=== PATIENT | female | born 1950 | race Caucasian/White ===

== ENCOUNTER 2017-07-01 11:42 | Inpatient (IN) | payer OTHER ==
[~2017-07-01] VITALS: Ht 165.1 cm; Wt 106.7 kg
--- NOTE | ~2017-07-01 | EKG ---
[address] [place] [address] ELECTROCARDIOGRAM REPORT Name: SUE LOCKHART Room #: 364-P ADM IN M.R.#: [id number] Admission: 07/01/17 Attend Phys: Antonella Velazquez Discharge: Date of : 54 Report #: [id number] THIS REPORT FOR: //name// [facility] ED Test Date: 2017-07-01 Test Time: 11:49:10 Pat Name: SUE LOCKHART Department: Room: 364 Gender: F Mount Loader: [id number] : 1950 Requested By: Heather Darling Order Number: [id number] MD: Shiva Hollingsworth Measurements Intervals [place] Rate: 48 P: 33 AL: 159 QRS: -1 QRSD: 94 T: 103 QT: 447 QTc: 400 Interpretive Statements Sinus bradycardia Nonspecific T abnrm, anterolateral leads Minimal ST elevation, inferior leads Compared to ECG 07/09/2013 10:19:34 ST (T wave) deviation now present Sinus rhythm no longer present T-wave abnormality no longer present Possible ischemia no longer present Electronically Signed On 07-01-2017 22:42:43 CDT by Shiva Hollingsworth [email or web address] <ELECTRONICALLY SIGNED> By: Shiva Hollingsworth MD 07/01/17 2242 1149 1149 Shiva Hollingsworth MD /EPI
--- NOTE | ~2017-07-01 | EKG ---
[address] [address] ELECTROCARDIOGRAM REPORT Name: SUE LOCKHART Room #: 211-P ADM IN M.R.#: [id number] Admission: 07/01/17 Attend Phys: Antonella Velazquez Discharge: Date of : 54 Report #: [id number] THIS REPORT FOR: //name// [facility] Test Date: 2017-07-02 Test Time: 06:55:42 Pat Name: SUE LOCKHART Department: Room: 211 Gender: F Otr Flatbed Driver: jimmy : 1950 Requested By: Remi Saldivar Order Number: [id number] MD: Shiva Hollingsworth Measurements Intervals [place] Rate: 60 P: 37 [place]: 152 QRS: -21 QRSD: 98 T: 34 QT: 448 QTc: 448 Interpretive Statements Sinus rhythm Borderline left axis deviation Borderline T abnormalities, anterior leads Compared to ECG 07/01/2017 11:49:10 T-wave abnormality now present Sinus bradycardia no longer present ST (T wave) deviation no longer present Electronically Signed On 07-02-2017 17:37:01 CDT by Shiva Hollingsworth [email or web address] <ELECTRONICALLY SIGNED> By: Shiva Hollingsworth MD 07/02/17 1737 0655 0655 Shiva Hollingsworth MD /EPI
--- NOTE | ~2017-07-01 | CATHLAB ---
[facility] [address] [place] [address] INVASIVE PROCEDURE REPORT Name: CHANTELLESUE Markie Room #: 211-P [facility] IN ..#: [id number] Admission: 07/01/17 Attend Phys: Antonella Fitch Discharge: Date of : 54 Date of Service: 07/02/17 2252 Report #: [id number] THIS REPORT FOR: //name// APPROVED REPORT Patient Details Patient Status: In-Patient Room #: The patient is a 66 year-old female Event Personnel Remi Saldivar Boot Maker, Teresa Copeland, Wang Basurto RN, Latisha Stewart RN RN, Casie Wei Scrub, Rocío Messer CVT Scrub Procedures Performed 07000 Initial Mod Sed Same Phys/QHP Gr5y 016802 89096 Mod Sed Same Phys/QHP Ea 609106 RONALDO Place w/wo Plasty Single LAD 496149 Art Access - R femoral artery* Left Heart Cath w/or w/o Coronaries 3457170 [facility] Aortogram Abdominal Peripheral Angio 307763 Procedure Narrative The patient was brought urgently to the Cardiac Catheterization Laboratory and was prepped and draped in a sterile manner. The Right Groin^ was infiltrated with 1% Lidocaine subcutaneous anesthesia. A PINNACLE 6FR Sheath #[id number] sheath was inserted into the RFA^. Coronary angiography was performed using coronary diagnostic catheters. The right coronary system was accessed and visualized with a JR 4 catheter. The left coronary system was accessed and visualized with a JL 4 catheter. The left ventricle was accessed and visualized with a Pigtail catheter. Left ventricular/Aortic Valve gradient assessed via catheter pullback. Left ventriculogram was performed in 30 degree projection. An aortogram of the descending aorta was performed. The patient tolerated the procedure well and there were no complications associated with the procedure. Intraoperative Conscious Sedation Sedation start time: 09:49 Case end Time: 10:46 Fentanyl 50.0 mcg Versed 1.5 mg Fluoro Time: 12.40 minutes Dose: DAP 70954.00 cGycm2 2013 mGy Contrast Type and Amount: Omnipaque 245 ml Hemodynamics [facility] [address] [place] [address] INVASIVE PROCEDURE REPORT Name: SUE LOCKHART Room #: 211-P [facility] IN ..#: [id number] Admission: 07/01/17 Attend Phys: Antonella Fitch Discharge: Date of : 54 Date of Service: 07/02/17 2252 Report #: [id number] The aortic pressure is 176/85 mmHg with a mean of 122 mmHg. The left ventricular pressure is 172/7 mmHg with a mean of mmHg. The left ventricular end diastolic pressure is 30 mmHg. PCI Technique Lesion Anticoagulation was achieved with Heparin. Percutaneous coronary intervention was performed on the proximal left anterior descending artery segment. A LAUNCHER 6FR JL4 #536794 Guide Catheter was used to engage the ostium. A Luge Wire .014 x 182CM #[id number] Interventional Guidewire was used to cross the lesion. BALLOON DILATION A Balloon catheter Sprinter OTW 2.5 x 15 #[id number] was inserted and inflated up to 14.00atm for 30seconds. Additional Inflation: 16.00atm for 26seconds. Additional Inflation: 12.00atm for 32seconds. STENT DEPLOYMENT A drug-eluting stent RESOLUTE OTW 2.5 X 14 #[id number] was inserted and inflated up to 15.00atm for 34seconds. STENT DEPLOYMENT A drug-eluting stent RESOLUTE OTW 3.0 X 12 #[id number] was inserted and inflated up to 16.00atm for 25seconds. Conclusion #1 normal left ventricular size and mild anterior wall leg EF 50% range #2 abdominal aorta is intact no aneurysm single bilateral renal arteries are patent. #3 left main free of disease giving rise to LAD and circumflex dominant circumflex #4 moderately diseased LAD which wraps the apex is a high-grade proximal lesion a septal curator zoological museum 90% a 4050% mid vessel in the mid distal not long 90% lesion at the apex subtotally occluded. #5 Circumflex OM is well preserved large dominant vessel no significant occlusive disease #6 small nondominant right coronary artery #7 successful PTCA stent of the proximal high-grade lesion in the mid-distal long lesion with a 30 by 12 proximally resolute drug-eluting stent postdilated 3.3 mm Mid-distal long subtotal lesion 0% with a 2.5 x 14 drug-eluting resolute stent to 2.7 mm MARCIAL grade 3 flow no dissection or thrombus formation Recommendations and plan continue aggressive risk factor modification [facility] [address] [place] [address] INVASIVE PROCEDURE REPORT Name: SUE LOCKHART Room #: 211-P [facility] IN M.R.#: [id number] Admission: 07/01/17 Attend Phys: Antonella Jagdish Fitch Discharge: Date of : 54 Date of Service: 07/02/172251 Report #: [id number] dual antiplatelet therapy. Technically difficult challenging study due to body habitus multiple guides were attempted final result excellent in the stented segments. There is moderate disease otherwise noted LV function near normal. No lifting for 48 hours no line tub Jacuzzi or Hart for a week. No MRI or dental work for 3 months Transfer to CCU in stable guarded condition I did need to upgrade the sheath due to oozing 7 Telugu this will removed in the holding area in transfer to CCU small hematoma is noted <ELECTRONICALLY SIGNED> By: Remi Saldivar MD, FACC 07/02/172251 51 51 Remi Saldivar MD, FACC /INF
--- NOTE | ~2017-07-01 | EKG ---
[address] [address] ELECTROCARDIOGRAM REPORT Name: SUE LOCKHART Room #: 211- ADM IN M.R.#: [id number] Admission: 07/01/17 Attend Phys: Antonella Velazquez Discharge: Date of : 54 Report #: [id number] THIS REPORT FOR: //name// [facility] Test Date: 2017-07-02 Test Time: 12:50:18 Pat Name: SUE LOCKHART Department: Room: 211 P Gender: F Loom Overhauler: jimmy : 1950 Requested By: Remi Saldivar Order Number: [id number] MD: Shiva Hollingsworth Measurements Intervals [place] Rate: 64 P: 35 NE: 151 QRS: -27 QRSD: 98 T: -23 QT: 471 QTc: 486 Interpretive Statements Sinus rhythm Probable left ventricular hypertrophy Inferior infarct, age indeterminate Compared to ECG 07/01/2017 11:49:10 Myocardial infarct finding now present Sinus bradycardia no longer present ST (T wave) deviation no longer present Electronically Signed On 07-02-2017 17:41:38 CDT by Shiva Hollingsworth [email or web address] <ELECTRONICALLY SIGNED> By: Shiva Hollingsworth MD 07/02/17 1741 1250 1250 Shiva Hollingsworth MD /EPI
--- NOTE | ~2017-07-01 | EKG ---
[address] [address] ELECTROCARDIOGRAM REPORT Name: SUE LOCKHART Room #: 211-P ADM IN M.R.#: [id number] Admission: 07/01/17 Attend Phys: Antonella Velazquez Discharge: Date of : 54 Report #: [id number] THIS REPORT FOR: //name// [facility] Test Date: 2017-07-03 Test Time: 14:42:06 Pat Name: SUE LOCKHART Department: Room: 211 P Gender: F Economics Consultant: Italo AGUIRRE : 1950 Requested By: Antonella Velazquez Order Number: [id number] MD: Shiva Hollingsworth Measurements Intervals [place] Rate: 77 P: 34 NC: 143 QRS: -11 QRSD: 89 T: 104 QT: 400 QTc: 453 Interpretive Statements Sinus rhythm Borderline repolarization abnormality Minimal ST elevation, inferior leads Compared to ECG 07/02/2017 12:50:18 ST (T wave) deviation now present Myocardial infarct finding no longer present Electronically Signed On 07-03-2017 20:29:38 CDT by Shiva Hollingsworth [email or web address] <ELECTRONICALLY SIGNED> By: Shiva Hollingsworth MD 07/03/172028 144 41 Shiva Hollingsworth MD /EPI
[~2017-07-01 11:42] MED LIST: ACETAMINOPHEN-1 EAC1 PO; ASPIRIN325 PO; AVELOX 400 MG400 MG PO; BACTRIM DS TAB1 EACH PO; BENADRYL25 MG PO; CELEXA 20 MG TA20 M1 PO; CELEXA40 MG PO; CIPROFLOXACIN500 M1 PO; DIFLUCAN150 MG PO; FISH OIL 1,0001 EAC5 PO; GLUCOPHAGE500 MG PO; HYDROXYZINE HCL25 M1 PO; INDOCIN50 MG PO; INDOMETHACIN 5050 M1 PO; KLOR-CON 10 ER10 MEQ PO; LANTUS SQ; LANTUS SUBQ; LASIX 40 MG TAB40 MG PO; LEVOTHROID PO; LISINOPRIL40 MG PO; LOPRESSOR 50 MG50 M1 PO; MACROBID 100 M100 M1 PO; NEURONTIN800 MG PO; NEXIUM40 MG PO; NORCO 5-325 TA1 EACH PO; NOVOLOG100 UNIT/1 SUBQ; NYSTATIN15 GM TP; PANTOPRAZOLE SO40 M1 PO; PHENERGAN 25 MG25 M1 PO; PREMARIN VAGI42.5 G1 VAG; PROMETHAZINE D480 M1 PO; PROTONIX40 M2 PO; PYRIDIUM200 MG PO; SYNTHROID175 MCG PO; TOPAMAX 25 MG T25 M1 PO; TOPAMAX100 MG PO; TOPAMAX200 MG PO; ZOFRAN ODT4 MG PO; ZOFRAN4 MG PO; ZPAK PO
[2017-07-01 11:43] VITALS: BP 144/75
[2017-07-01] MEDS ORDERED: LEVEMIR SUBQ (12:02)
[2017-07-01 12:05] LABS: ABSOLUTE NEUTROPHILS 8.3 thou/uL (1.4-8.2); BASOPHILS 0.5 % (0.0-2.0); EOSINOPHILS 0.9 % (0.0-3.0); HEMATOCRIT 38.3 % (37.0-47.0); HEMOGLOBIN 12.1 gm/dL (12.0-15.0); LYMPHOCYTES 13.5 % (24.0-44.0); MANUAL DIFF NO; MCH 23.3 pg (26.0-34.0); MCHC 31.7 g/dL (28.0-37.0); MCV 73.6 fL (80.0-100.0); MONOCYTES 3.9 % (1.0-8.0); PLATELET COUNT 247 thou/uL (150-400); POLYS 81.2 % (36.0-66.0); RBC 5.21 mil/uL (4.20-5.00); RDW 16.7 % (10.5-14.5); WBC 10.3 thou/uL (4.0-11.0)
[2017-07-01 12:17] LABS: ANION GAP 11 mmol/L (7-16); BUN 10 mg/dL (7-18); CALCIUM 9.2 mg/dL (8.5-10.1); CHLORIDE 100 mmol/L (98-107); CO2 22 mmol/L (21-32); CREATININE 0.9 mg/dL (0.6-1.0); GLUCOSE 401 mg/dL (74-106); POTASSIUM 4.3 mmol/L (3.5-5.1); SODIUM 133 mmol/L (136-145)
[2017-07-01 12:26] LABS: TROPONIN-I < 0.04 ng/mL (<0.04-0.07)
[2017-07-01 12:30] LABS: ANISOCYTOSIS 1+; PLATELET ESTIMATE NORMAL
[2017-07-01 12:31] LABS: MICROCYTES 1+
[2017-07-01 13:57] VITALS: BP 177/63
[2017-07-01 15:15] VITALS: BP 179/79
[2017-07-01 16:00] VITALS: BP 180/67
[2017-07-01 17:40] LABS: CHOLESTEROL 170 mg/dL (<200); HDL CHOLESTEROL 25 mg/dL (>40); LDL CHOLESTEROL 111 mg/dL (<100); TC:HDL 6.8 Ratio (Not establshd); TRIGLYCERIDE 174 mg/dL (<150); VLDL 35 mg/dL (<40)
[2017-07-01 17:41] LABS: SERUM ASSESSMENT Clear
[2017-07-01 20:50] VITALS: BP 143/62
[2017-07-02 00:10] VITALS: BP 132/66
[2017-07-02 06:10] VITALS: BP 146/74
[2017-07-02 06:55] LABS: ALBUMIN 3.1 g/dL (3.4-5.0); CALCIUM 8.7 mg/dL (8.5-10.1); CREATININE 0.8 mg/dL (0.6-1.0); PHOSPHORUS 3.8 mg/dL (2.5-4.9); POTASSIUM 4.2 mmol/L (3.5-5.1)
[2017-07-02 08:30] VITALS: BP 148/64
[2017-07-02 13:08] VITALS: BP 133/73
[2017-07-02 18:58] LABS: HEMATOCRIT 37.8 % (37.0-47.0); HEMOGLOBIN 11.6 gm/dL (12.0-15.0)
[2017-07-02 19:14] LABS: APTT 27.1 Seconds (24.5-32.8); INR 1.1; PROTIME 10.8 Seconds (9.3-11.4)
[2017-07-02 19:38] VITALS: BP 110/60
[2017-07-02 23:30] VITALS: BP 107/76
[2017-07-03 02:52] LABS: HEMATOCRIT 32.3 % (37.0-47.0); HEMOGLOBIN 10.1 gm/dL (12.0-15.0); MCH 23.6 pg (26.0-34.0); MCHC 31.3 g/dL (28.0-37.0); MCV 75.5 fL (80.0-100.0); RBC 4.27 mil/uL (4.20-5.00); RDW 16.4 % (10.5-14.5); WBC 18.2 thou/uL (4.0-11.0)
[2017-07-03 02:56] LABS: CALCIUM 8.7 mg/dL (8.5-10.1); CREATININE 1.2 mg/dL (0.6-1.0); POTASSIUM 4.3 mmol/L (3.5-5.1)
[2017-07-03 03:53] VITALS: BP 113/57
[2017-07-03 08:40] VITALS: BP 121/50
[2017-07-03 11:10] VITALS: BP 104/49
[2017-07-03 15:24] VITALS: BP 121/42
[2017-07-03 19:45] VITALS: BP 103/42
[2017-07-04 00:15] VITALS: BP 126/55
[2017-07-04 04:12] VITALS: BP 118/53
[2017-07-04 07:41] VITALS: BP 117/54
[2017-07-04] MEDS ORDERED: CLOPIDOGREL75 MG PO (08:55)
[2017-07-04] MEDS ORDERED: ATORVASTATIN CA40 MG PO (08:55)
[2017-07-04] MEDS ORDERED: METOPROLOL SUCC25 M1 PO (08:55)
[2017-07-04 09:22] VITALS: BP 117/54
== END 2017-07-04 10:39 | disposition home or self-care (01) | DRG 246 ==
LOC: ER 11:42 → 3W 13:49 → EROBS 13:49 → 3W 15:53 → 2N 07-02 12:24 → ENTRNSPT 07-04 10:29 → 2N 07-04 10:39
PROVIDERS: Emergency Medicine; Hospitalist; Internal Medicine Cardiovascular Disease; Nurse Practitioner Gerontology
PROC: B2111ZZ Fluoroscopy of Multiple Coronary Arteries using Low Osmolar Contrast (ICD-10-PCS; principal; 2017-07-02)
PROC: 4A023N7 Measurement of Cardiac Sampling and Pressure, Left Heart, Percutaneous Approach (ICD-10-PCS; principal; 2017-07-02)
PROC: 027034Z Dilation of Coronary Artery, One Artery with Drug-eluting Intraluminal Device, Percutaneous Approach (ICD-10-PCS; principal; 2017-07-02)
PROC: B2151ZZ Fluoroscopy of Left Heart using Low Osmolar Contrast (ICD-10-PCS; principal; 2017-07-02)
DX: I21.4 Non-ST elevation (NSTEMI) myocardial infarction (principal); N17.0 Acute kidney failure with tubular necrosis; G43.909 Migraine, unspecified, not intractable, without status migrainosus; F41.9 Anxiety disorder, unspecified; E03.9 Hypothyroidism, unspecified; E66.9 Obesity, unspecified; E11.65 Type 2 diabetes mellitus with hyperglycemia; I25.10 Atherosclerotic heart disease of native coronary artery without angina pectoris; R00.1 Bradycardia, unspecified; S30.1XXA Contusion of abdominal wall, initial encounter; K31.84 Gastroparesis; E11.43 Type 2 diabetes mellitus with diabetic autonomic (poly)neuropathy; F32.9 Major depressive disorder, single episode, unspecified; Z85.41 Personal history of malignant neoplasm of cervix uteri; Z90.710 Acquired absence of both cervix and uterus; Z86.73 Personal history of transient ischemic attack (TIA), and cerebral infarction without residual deficits; Z90.49 Acquired absence of other specified parts of digestive tract; Z88.6 Allergy status to analgesic agent; Z88.0 Allergy status to penicillin; Z88.2 Allergy status to sulfonamides; Z88.8 Allergy status to other drugs, medicaments and biological substances; Z68.39 Body mass index [BMI] 39.0-39.9, adult; Z79.899 Other long term (current) drug therapy; Z79.82 Long term (current) use of aspirin; I25.2 Old myocardial infarction; Z82.49 Family history of ischemic heart disease and other diseases of the circulatory system; Z91.041 Radiographic dye allergy status
CPT/HCPCS: 10081; 10779

== ENCOUNTER → 2020-03-11 | Outpatient (CLI) | payer OTHER ==
[~2020-03-11] MED LIST changes: +ATORVASTATIN CA40 MG PO; +CLOPIDOGREL75 MG PO; +LEVEMIR SUBQ; +METOPROLOL SUCC25 M1 PO
== END ==
LOC: SJCVCIMAG 02-24 09:55
PROVIDERS: ATTEND Internal Medicine Cardiovascular Disease
DX: I35.8 Other nonrheumatic aortic valve disorders (principal); R94.31 Abnormal electrocardiogram [ECG] [EKG]; I25.10 Atherosclerotic heart disease of native coronary artery without angina pectoris; I10 Essential (primary) hypertension; E78.00 Pure hypercholesterolemia, unspecified; E08.00 Diabetes mellitus due to underlying condition with hyperosmolarity without nonketotic hyperglycemic-hyperosmolar coma (NKHHC); I65.23 Occlusion and stenosis of bilateral carotid arteries; E03.9 Hypothyroidism, unspecified; E66.01 Morbid (severe) obesity due to excess calories; Z79.82 Long term (current) use of aspirin; Z79.899 Other long term (current) drug therapy; Z79.4 Long term (current) use of insulin; Z86.73 Personal history of transient ischemic attack (TIA), and cerebral infarction without residual deficits

== ENCOUNTER → 2020-11-03 | Outpatient (CLI) | payer OTHER | LOC: SJCVC 11:18 | PROVIDERS: ATTEND Internal Medicine Cardiovascular Disease | DX: R94.31 Abnormal electrocardiogram [ECG] [EKG] (principal); I25.10 Atherosclerotic heart disease of native coronary artery without angina pectoris; I11.9 Hypertensive heart disease without heart failure; I65.23 Occlusion and stenosis of bilateral carotid arteries; E78.00 Pure hypercholesterolemia, unspecified; R07.9 Chest pain, unspecified; R06.00 Dyspnea, unspecified; G40.909 Epilepsy, unspecified, not intractable, without status epilepticus; G89.29 Other chronic pain; E11.40 Type 2 diabetes mellitus with diabetic neuropathy, unspecified; E03.9 Hypothyroidism, unspecified; E66.01 Morbid (severe) obesity due to excess calories; Z79.899 Other long term (current) drug therapy; Z79.4 Long term (current) use of insulin; Z86.73 Personal history of transient ischemic attack (TIA), and cerebral infarction without residual deficits; Z88.5 Allergy status to narcotic agent; Z88.0 Allergy status to penicillin; Z88.2 Allergy status to sulfonamides; Z88.8 Allergy status to other drugs, medicaments and biological substances ==

== ENCOUNTER 2020-11-18 18:57 | Emergency (ER) | payer OTHER ==
[~2020-11-18] VITALS: Ht 167.6 cm; Wt 89.8 kg
[2020-11-18] MEDS ORDERED: ANUSOL-HC30 GM TOP (21:40)
[2020-11-18] MEDS ORDERED: RECTASMOOTHE30 GM TOP (21:40)
[2020-11-18] MEDS ORDERED: ANUSOL-HC25 MG RECTAL (21:40)
[2020-11-18] MEDS ORDERED: SENNA-DOCUSATE1 EAC1 PO (21:40)
[2020-11-18 23:00] VITALS: BP 134/43
== END 2020-11-18 22:15 | disposition home or self-care (01) ==
LOC: ER 18:57
DX: K64.4 Residual hemorrhoidal skin tags (principal); B97.7 Papillomavirus as the cause of diseases classified elsewhere; I10 Essential (primary) hypertension; K59.09 Other constipation; G43.909 Migraine, unspecified, not intractable, without status migrainosus; Z90.49 Acquired absence of other specified parts of digestive tract; Z90.710 Acquired absence of both cervix and uterus; Z90.89 Acquired absence of other organs; Z79.01 Long term (current) use of anticoagulants; Z79.899 Other long term (current) drug therapy; Z88.0 Allergy status to penicillin; Z88.1 Allergy status to other antibiotic agents; Z88.2 Allergy status to sulfonamides; Z88.5 Allergy status to narcotic agent; Z88.8 Allergy status to other drugs, medicaments and biological substances; Z79.82 Long term (current) use of aspirin

== ENCOUNTER 2020-11-21 10:35 | Emergency (ER) | payer OTHER ==
[~2020-11-21] VITALS: Ht 167.6 cm; Wt 89.8 kg
[~2020-11-21 10:35] MED LIST changes: +ANUSOL-HC25 MG RECTAL; +ANUSOL-HC30 GM TOP; +RECTASMOOTHE30 GM TOP; +SENNA-DOCUSATE1 EAC1 PO
[2020-11-21 12:49] VITALS: BP 154/79
== END 2020-11-21 12:49 | disposition home or self-care (01) ==
LOC: ER 10:35
DX: K64.4 Residual hemorrhoidal skin tags (principal); K59.00 Constipation, unspecified; G43.909 Migraine, unspecified, not intractable, without status migrainosus; Z90.49 Acquired absence of other specified parts of digestive tract; Z90.710 Acquired absence of both cervix and uterus; Z79.899 Other long term (current) drug therapy; Z79.82 Long term (current) use of aspirin; Z88.0 Allergy status to penicillin; Z88.2 Allergy status to sulfonamides; Z88.5 Allergy status to narcotic agent; Z88.1 Allergy status to other antibiotic agents; Z91.041 Radiographic dye allergy status; Z88.8 Allergy status to other drugs, medicaments and biological substances

== ENCOUNTER → 2021-01-04 | Outpatient (CLI) | payer OTHER | LOC: SJCVCIMAG | PROVIDERS: ATTEND Internal Medicine Cardiovascular Disease | DX: R07.89 Other chest pain (principal); I25.10 Atherosclerotic heart disease of native coronary artery without angina pectoris; R06.00 Dyspnea, unspecified; E78.5 Hyperlipidemia, unspecified; I10 Essential (primary) hypertension; E11.9 Type 2 diabetes mellitus without complications; R11.0 Nausea; R51.9 Headache, unspecified; Z86.73 Personal history of transient ischemic attack (TIA), and cerebral infarction without residual deficits; Z79.82 Long term (current) use of aspirin; Z79.899 Other long term (current) drug therapy; Z98.61 Coronary angioplasty status ==

== ENCOUNTER 2021-01-16 06:25 | Observation (INO) | payer OTHER ==
[~2021-01-16] VITALS: Ht 167.6 cm; Wt 91.5 kg
[2021-01-16 07:48] LABS: HEMOGLOBIN 12.1 gm/dL (12.0-15.0); MCH 25.2 pg (26.0-34.0); MCHC 31.9 g/dL (28.0-37.0); MCV 79.3 fL (80.0-100.0); RBC 4.79 mil/uL (4.20-5.00); RDW 15.4 % (10.5-14.5); WBC 8.9 thou/uL (4.0-11.0)
[2021-01-16] MEDS ORDERED: METFORMIN HCL500 M3 PO (07:51)
[2021-01-16] MEDS ORDERED: SEROQUEL300 MG PO (07:53)
[2021-01-16] MEDS ORDERED: OZEMPIC0.25 MG/0. SUBQ (07:54)
[2021-01-16 07:55] LABS: CALCIUM 9.1 mg/dL (8.5-10.1); CREATININE 0.9 mg/dL (0.6-1.0); POTASSIUM 4.2 mmol/L (3.5-5.1)
[2021-01-16] MEDS ORDERED: DESYREL150 MG PO (07:55)
[2021-01-16] MEDS ORDERED: COZAAR 25 MG TA25 M1 PO (07:55)
[2021-01-16] MEDS ORDERED: MECLIZINE HCL25 M1 PO (07:56)
[2021-01-16] MEDS ORDERED: LEVEMIR100 UNIT/1 SUBQ (07:58)
--- NOTE | 2021-01-16 08:33 | EKG ---
[place] [address] [facility] [place] [address] ELECTROCARDIOGRAM REPORT Name: PETEY LOCKHARTYCE Markie Room #: [facility]#: [id number] Admission: 01/16/21 Attend Phys: Remi Saldivar MD, Discharge: Date of : 54 Report #: [id number] [facility] Test Date: 2021-01-16 Test Time: 07:52:16 Pat Name: SUE LOCKHART Department: Room: Gender: F Sail Maker: SBUL : 1950 Requested By: Remi Saldivar Order Number: [id number] MD: Dewey Mukherjee Measurements Intervals [place] Rate: 58 P: 26 [place]: 163 QRS: -18 QRSD: 99 T: 72 QT: 426 QTc: 419 Interpretive Statements Sinus bradycardia Borderline T wave abnormalities Compared to ECG 07/03/2017 14:42:06 T-wave abnormality now present ST (T wave) deviation no longer present Electronically Signed On 01-16-2021 8:33:00 CDT by Dewey Mukherjee [email or web address] <ELECTRONICALLY SIGNED> By: Dewey Mukherjee MD, [facility] 01/16/2133 0752 075 Dewey Mukherjee MD, [facility] /EPI
[2021-01-16 10:30] VITALS: BP 134/57
[2021-01-16 10:47] VITALS: BP 134/57
[2021-01-16 15:45] VITALS: BP 146/68
[2021-01-16 16:02] VITALS: BP 146/68
--- NOTE | 2021-01-16 18:51 | NUR ---
PT CARE ASSUMED AT 1030. ASSESSMENTS CHARTED. MEDICATIONS CHARTED. LAC IV. SINUS RHYTHM. ACHS. PT COMPLAINED OF RT GROIN PAIN 8/10; ACETAMINOPHEN GAVE NO RELIEF. KETOROLAC GIVEN, PT CANNOT TAKE HYDROCODONE, OXYCODONE, OR MORPHINE. POST CATH VITALS NOT AVAILABLE VITALS MACHINE WAS REMOVED FROM PT WITHOUT MY KNOWLEDGE.
[2021-01-16 19:07] VITALS: BP 129/62
[2021-01-17] VITALS (7 sets, daily range): BP systolic 99–126; BP diastolic 45–53
[2021-01-17 04:17] LABS: HEMATOCRIT 33.3 % (37.0-47.0); HEMOGLOBIN 10.7 gm/dL (12.0-15.0); MCH 25.3 pg (26.0-34.0); MCV 79.1 fL (80.0-100.0); RBC 4.22 mil/uL (4.20-5.00); RDW 15.3 % (10.5-14.5); WBC 10.2 thou/uL (4.0-11.0)
[2021-01-17 04:33] LABS: ANION GAP 10 mmol/L (7-16); BUN 15 mg/dL (7-18); CALCIUM 8.7 mg/dL (8.5-10.1); CHLORIDE 107 mmol/L (98-107); CO2 23 mmol/L (21-32); CREATININE 0.9 mg/dL (0.6-1.0); GLUCOSE 127 mg/dL (74-106); POTASSIUM 4.1 mmol/L (3.5-5.1); SGOT 9 U/L (15-37); SGPT 11 U/L (14-59); SODIUM 140 mmol/L (136-145); TOTAL BILIRUBIN 0.8 mg/dL (0.2-1.0); TOTAL PROTEIN 6.4 g/dL (6.4-8.2)
[2021-01-17 04:49] LABS: TROPONIN-I <0.06 ng/mL (<0.06)
[2021-01-17] MEDS ORDERED: ASPIRIN325 PO (07:49)
[2021-01-17] MEDS ORDERED: CLOPIDOGREL75 MG PO (07:49)
--- NOTE | 2021-01-17 07:54 | EKG ---
[address] [place] [address] ELECTROCARDIOGRAM REPORT Name: SUE LOCKHART Room #: 209-[facility].R.#: [id number] Admission: 01/16/21 Attend Phys: Remi Saldivar MD, Discharge: Date of : 54 Report #: [id number] [facility] Test Date: 2021-01-17 Test Time: 07:08:04 Pat Name: SUE LOCKHART Department: Room: 209 Gender: F Heavy Cleaner: MONICO : 1950 Requested By: Subha Hassan Order Number: [id number] MD: Dewey Mukherjee Measurements Intervals [place] Rate: 61 P: 26 ID: 159 QRS: -16 QRSD: 87 T: 96 QT: 423 QTc: 426 Interpretive Statements Sinus rhythm Inferior infarct, old Nonspecific T wave abnormality Compared to ECG 01/16/2021 07:52:16 Sinus bradycardia no longer present Electronically Signed On 01-17-2021 7:54:08 CDT by Dewey Mukherjee [email or web address] <ELECTRONICALLY SIGNED> By: Dewey Mukherjee MD, [facility] 01/17/21 0754 Dewey Mukherjee MD, [facility] /EPI
--- NOTE | 2021-01-17 13:05 | NUR ---
PT CARE ASSUMED AT 0700. ASSESSMENTS CHARTED. MEDICATIONS CHARTED. LAC IV. SINUS RHYTHM. BSC. DAY TWO; RT GROIN, MYNX, LT LAD STENT. PT HAS HAD PAIN IN RT GROIN SITE; KETOROLAC FOR PAIN. ZOFRAN FOR NAUSEA. DISASTER DIRECTOR ORDERED US OF RT GROIN TO R/O PSEUDO ANUERYSM. RT GROIN FIRM TO PALPATION.
--- NOTE | 2021-01-19 17:06 | CATHLAB ---
[facility] [place] [address] INVASIVE PROCEDURE REPORT Name: SUE LOCKHART Room #: 209-P [facility] Jim Paulino#: [id number] Admission: 01/16/21 Attend Phys: Remi Saldivar MD, Discharge: 01/17/21 Date of : 54 Report #: [id number] THIS REPORT FOR: cc: Obed Cook MD, Sequita MD Mancuso, Gerald M. MD [facility] ~ APPROVED REPORT Study performed: 01/16/2021 07:48:33 Patient Details The patient is a 70 year-old female Event Personnel Remi Saldivar Investigative Reporter, Kyara Jarrell RN RN, Honey Petersen RTR, BLAYNE Matson, Brokoe Johnson Monitor Procedures Performed Art Access - R femoral artery* Left Heart Cath w/or w/o Coronaries [id number] [facility] [address] Initial Mod Sed Same Phys/QHP Gr5y 990801 87817 Mod Sed Same Phys/QHP Ea 069097 RONALDO Place w/wo Plasty Single LAD 622178 Indication Chest pain Procedure Narrative The Right Groin^ was infiltrated with 1% Lidocaine subcutaneous anesthesia. A PINNACLE 6FR Sheath #[id number] sheath was inserted into the RFA^. Coronary angiography was performed using coronary diagnostic catheters. The right coronary system was accessed and visualized with a JR4 catheter. The left coronary system was accessed and visualized with a JL4 catheter. The left ventricle was accessed and visualized with a STR PIG catheter. Left ventriculogram was performed in 30 degree projection. There was no hematoma. Intraoperative Conscious Sedation Sedation start time: 854 Case end Time: 1020 Fentanyl mcg Versed mg Fluoro Time: 4.30 minutes [facility] [address] [place] [address] INVASIVE PROCEDURE REPORT Name: SUE LOCKHART Room #: 209-P [facility]#: [id number] Admission: 01/16/21 Attend Phys: Remi Saldivar, Discharge: 01/17/21 Date of : 54 Report #: [id number] Dose: DAP 58297.50 cGycm2 1918 mGy Contrast Type and Amount: Omnipaque 165 ml Hemodynamics The aortic pressure is 189/77 mmHg with a mean of 70 mmHg. The left ventricular pressure is 180/3 mmHg with a mean of mmHg. The left ventricular end diastolic pressure is 57 mmHg. PCI Technique Lesion Percutaneous coronary intervention was performed on the proximal left anterior descending artery segment. A LAUNCHER 6FR EBU 3.5 #[id number] Guide Catheter was used to engage the ostium. A Luge Wire .014 x 182CM #[id number] Interventional Guidewire was used to cross the lesion. STENT DEPLOYMENT A stent RESOLUTE RAJEEV OTW 3.0 X 12 #[id number] was inserted and inflated up to 14.00atm for 29seconds. Additional Inflation: 18.00atm for 26seconds. Conclusion #1. Successful PTCA stent of a high-grade proximal LAD lesion placement of a 3.0 x 12 resolute [place] postdilated to 3.2 mm MARCIAL grade III flow. This extended into a prior stent previously placed which was mildly restenosed and a mid LAD stent which was mildly restenosed MARCIAL grade III flow. #2 left main widely patent giving rise to LAD and circumflex #3 circumflex OM is large dominant vessel no occlusive disease mild proximal calcification. #4 small nondominant right coronary artery. #5 normal left ventricular size and systolic function EF 50 to 55%. #6 abdominal aortogram mild tortuosity but no significant aneurysm noted. Recommendations and plan: Continue aggressive risk factor modification. Dual antiplatelet therapy has been initiated. Patient transferred to CCU to follow post coronary stent protocol. She is pain-free and hemodynamically stable. <ELECTRONICALLY SIGNED> By: Remi Saldivar MD, [facility] 01/19/211705 05 05 Remi Saldivar MD, FACC /INF
== END 2021-01-17 14:41 | disposition home or self-care (01) ==
LOC: CATH 06:25 → 2N 10:41 → CATH 10:48 → 2N 01-17 14:41
PROVIDERS: Nurse Practitioner Adult Health; ADMIT Internal Medicine Cardiovascular Disease; ATTEND Internal Medicine Cardiovascular Disease
DX: I25.10 Atherosclerotic heart disease of native coronary artery without angina pectoris (principal); I10 Essential (primary) hypertension; E78.5 Hyperlipidemia, unspecified; E11.9 Type 2 diabetes mellitus without complications; I25.2 Old myocardial infarction; G43.909 Migraine, unspecified, not intractable, without status migrainosus; Z79.4 Long term (current) use of insulin; Z79.899 Other long term (current) drug therapy

== ENCOUNTER → 2021-05-22 | Outpatient (CLI) | payer OTHER ==
[~2021-05-22] MED LIST changes: +COZAAR 25 MG TA25 M1 PO; +DESYREL150 MG PO; +LEVEMIR100 UNIT/1 SUBQ; +MECLIZINE HCL25 M1 PO; +METFORMIN HCL500 M3 PO; +OZEMPIC0.25 MG/0. SUBQ; +SEROQUEL300 MG PO
== END ==
LOC: SJCVC 12:46
PROVIDERS: ATTEND Internal Medicine Cardiovascular Disease
DX: R94.31 Abnormal electrocardiogram [ECG] [EKG] (principal); I11.9 Hypertensive heart disease without heart failure; I25.10 Atherosclerotic heart disease of native coronary artery without angina pectoris; E78.00 Pure hypercholesterolemia, unspecified; E11.40 Type 2 diabetes mellitus with diabetic neuropathy, unspecified; I65.23 Occlusion and stenosis of bilateral carotid arteries; Z79.4 Long term (current) use of insulin; Z86.73 Personal history of transient ischemic attack (TIA), and cerebral infarction without residual deficits; E66.01 Morbid (severe) obesity due to excess calories; Z79.82 Long term (current) use of aspirin; Z79.899 Other long term (current) drug therapy; Z88.5 Allergy status to narcotic agent; Z88.1 Allergy status to other antibiotic agents; Z88.8 Allergy status to other drugs, medicaments and biological substances; Z88.0 Allergy status to penicillin; Z88.2 Allergy status to sulfonamides